=== PATIENT | male | born 1965 | race Caucasian/White ===

== ENCOUNTER 2020-03-31 18:51 | Emergency (ER) | payer OTHER, SELFPAY ==
[2020-03-31 18:52] VITALS: BP 154/97; PULSE 69; RESP 16; TEMP 36.6; O2SAT 96; BMI 33.2
--- NOTE | 2020-03-31 19:08 | ED.VIS.INJ ---
History of Present Illness Chief Complaint: Laceration Informant: Patient Onset: Today Mechanism/Context: Puncture Wound Quality of Pain: Aching Narrative: Patient is a 54-year-old male presenting with puncture wound and laceration to his right hand. He is right-hand dominant. He was climbing down scaffolding when a piece of glass punctured his hand. He pulled out 1 small piece of glass. Does not feel it there is currently any retained foreign body. This was a couple hours prior to arrival. Patient initially had some tingling of his pinky finger but that has resolved. He thinks his last tetanus was around 5 years ago. He would like to have it updated again. This did happen at work but patient states he does not want a file Workmen's Compensation. He denies any other complaints at this time. He is not currently having any bleeding. Tetanus Immunization: 5-10 years Past Medical History - Allergies and Home Meds Allergies/Adverse Reactions: Allergies No Known Allergies Allergy (Verified 03/31/20 18:51) Primary Care Physician: Eloy Cosme MD [STAFF PHYSICIAN] - Past Medical History: None Surgical History: noncontributory Smoking Status: Never smoker Review of Systems General: Denies: Chills, Fever, Sweats Eyes: Denies: Visual changes - bilaterally, Diplopia ENT: Denies: Rhinorrhea, Sore throat Cardiovascular: Denies: Chest pain, Palpitations Respiratory: Denies: Dyspnea, Cough, Dyspnea on exertion Gastrointestinal: Denies: Abdominal pain, Nausea, Vomiting Musculoskeletal: Reports: Extremity Pain - Right hand. Denies: Back pain Skin: Reports: Wounds - Right hand. Denies: Rash Neurological: Denies: Headache, Weakness, Parasthesia, Numbness Physical Exam Vital Signs/Narrative: Vital Signs Temp Pulse Resp BP Pulse Ox 03/31/20 18:52 97.8 F 69 16 154/97 H 96 Inital Vital Signs reviewed: Yes General: Well nourished, Well developed Head: Normocephalic, Atraumatic Eyes: Perrl, EOMI ENT: No trauma Neck: Full ROM Cardiovascular: Regular rate, Regular rhythm, No murmurs Respiratory: No distress, CTA bilaterally, Chest nontender Skin: Normal color, No rash, Trauma - 1.5 cm laceration over the palmar surface of the right hand mid hyperthenar eminence. Full-thickness. No active bleeding. Neurological: Alert, Oriented x3, Cranial nerves II-XII grossly intact, Normal Strength, Normal Sensation, - - Normal sensation in all dermatomes as well as normal strength in all dermatomes of the right hand Psychological: Normal affect Diagnostic/Tx/Re-eval - Medical Decision Making Patient is evaluated for laceration to his right hand. Tetanus is updated. See procedure note for laceration repair. Patient is not having palpable foreign body and seems like one piece of glass was removed from the wound. I do not think an x-ray is indicated at this time. Patient is counseled on generalized wound care. As he does not have a PCP he is referred to one for outpatient follow-up. He is instructed that his sutures should come out on their own but if they are still in that issue be removed after 10 days. Patient is counseled on signs and symptoms requiring return to the emergency room. Patient verbalizes agreement and understand this plan. Patient discharged home in stable and improved condition. Laceration No standard instances Length: 0.59 in Depth: Sub Q Shape: Linear Prep: Sterile Conditions, Argelia Laceration Repair: Lidocaine with epi Irrigated (ml): 999 - running water Number of Sutures/[place]: 2 Stitch Description: Simple, 4-0, - - vicryl rapid ED Disposition - Plan for ED Patient: Disposition: Home or Assisted Living Diagnosis: Laceration of right hand Instructions: ED Laceration Hand Referrals: Eloy Cosme MD [STAFF PHYSICIAN] - Additional Instructions: I placed absorbable sutures in. This should fall out in 7 to 10 days. They do not come out before that you can be re-seen and they can be removed after 10 days. Keep the wound clean and dry for the first 24 to 48 hours. Apply bacitracin ointment as needed. Return to emergency room with any signs of infection or worsening pain.
[2020-03-31] MEDS: Diphth,Pertuss(Acell),Tet Vac 0.5 ML Vial IM (19:18)
[2020-03-31 19:45] VITALS: RESP 16
== END 2020-03-31 19:40 | disposition home or self-care (01) ==
PROVIDERS: Emergency Provider Emergency Medicine
DX: S61.431A Puncture wound without foreign body of right hand, initial encounter (principal); S61.411A Laceration without foreign body of right hand, initial encounter; W25.XXXA Contact with sharp glass, initial encounter; Y93.9 Activity, unspecified; Y92.9 Unspecified place or not applicable; Y99.0 Civilian activity done for income or pay; Z23 Encounter for immunization
CPT/HCPCS: 12001; 90471; 90715; 99283

== ENCOUNTER → 2021-04-07 09:34 | Outpatient (CLI) | payer BC, SELFPAY ==
[2021-04-07 08:09] VITALS: BMI 33.2
[2021-04-07 12:40] LABS: Absolute Lymphocyte Count 1.77 X10^3/uL (0.83-4.51); Absolute Neutrophil Count 2.5 X10^3/uL (2.0-7.7); Basophil# 0.03 X10^3/uL; Basophil% 0.6 % (0-1); Eosinophil# 0.07 X10^3/uL; Eosinophils% 1.5 % (0-5); Hematocrit 50.7 % (40-54); Hemoglobin 16.8 g/dL (13.0-16.5); Lymphocyte # 1.77 X10^3/ul (0.83-4.51); Lymphocyte % 36.7 % (19-41); Mean Corp Hgb Conc 33.1 g/dL (32-36); Mean Corpuscular Hgb 27.6 pg (27.0-32.0); Mean Corpuscular Volume 83.3 fL (80-94); Mean Platelet Vol. 9.8 fl (6.2-12.0); Monocyte# 0.43 X10^3/uL; Monocyte% 8.9 % (0-10); NRBC Flagged by Analyzer 0 % (0-5); Neutrophil # 2.51 X10^3/uL (2.7-7.7); Neutrophil % 52.1 % (47-70); Platelet Count 267 K/mm3 (150-450); RBC Distribution Width SD 38.8 fl (35.1-43.9); Red Blood Count 6.09 M/mm3 (4.6-6.2); White Blood Count 4.8 K/mm3 (4.4-11.0)
[2021-04-07 13:16] LABS: Anion Gap 5 (5-15); BUN 11 mg/dL (7-18); BUN/Creat Ratio 11.7 RATIO (10-20); Calcium,Total 8.7 mg/dL (8.5-10.1); Chloride 106 mmol/L (98-107); Creatinine, Serum 0.94 mg/dL (0.70-1.30); EST Glomerular Filtration Rate 88 mL/min (>60); Est Glom Filt Rate - Afr Amer 107 mL/min (>60); Glucose 101 mg/dL (74-106); PSA,Total - Annual Screen 1.23 ng/mL (0.00-4.00); Potassium 4.1 mmol/L (3.5-5.1); Sodium Level 140 mmol/L (136-145); Thyroid Stim Hormone (TSH) 1.34 uIU/mL (0.358-3.74)
== END ==
PROVIDERS: PCP Internal Medicine; Referring Provider Nurse Practitioner Family; Visit Provider Nurse Practitioner Family
DX: Z00.00 Encounter for general adult medical examination without abnormal findings (principal)
CPT/HCPCS: 36415; 80048; 84153; 84443; 85025; G0103

== ENCOUNTER → 2023-04-29 | Outpatient (CLI) | payer BC, SELFPAY ==
[2023-04-29 07:45] LABS: Absolute Lymphocyte Count 1.57 X10^3/uL (0.83-4.51); Basophil# 0.03 X10^3/uL; Basophil% 0.5 % (0-1); Eosinophil# 0.07 X10^3/uL; Eosinophils% 1.1 % (0-5); Hematocrit 48.9 % (40-54); Hemoglobin 16.9 g/dL (13.0-16.5); Lymphocyte # 1.57 X10^3/ul (0.83-4.51); Lymphocyte % 25.2 % (19-41); Mean Corp Hgb Conc 34.6 g/dL (32-36); Mean Corpuscular Hgb 29.1 pg (27.0-32.0); Mean Corpuscular Volume 84.2 fL (80-94); Mean Platelet Vol. 9.5 fl (6.2-12.0); Monocyte# 0.56 X10^3/uL; NRBC Flagged by Analyzer 0 % (0-5); Neutrophil # 3.99 X10^3/uL (2.7-7.7); Neutrophil % 63.9 % (47-70); Platelet Count 254 K/mm3 (150-450); RBC Distribution Width CV 12.5 % (11.6-14.6); RBC Distribution Width SD 38.6 fl (35.1-43.9); Red Blood Count 5.81 M/mm3 (4.6-6.2); White Blood Count 6.2 K/mm3 (4.4-11.0)
[2023-04-29 08:14] LABS: Vitamin D,25 Hydroxy 28.8 ng/mL
[2023-04-29 08:16] LABS: ALB/GLOB Ratio 1.1 RATIO (0.9-2.4); AST(SGOT) 18 U/L (15-37); Alanine Aminotransfer ALT/SGPT 31 U/L (16-61); Albumin, Serum 3.8 g/dL (3.2-5.0); Alkaline Phosphatase 59 U/L (45-117); Anion Gap 2 (5-15); BUN 17 mg/dL (7-18); BUN/Creat Ratio 16.8 RATIO (10-20); Calcium,Total 8.5 mg/dL (8.5-10.1); Chloride 110 mmol/L (98-107); Cholesterol 209 mg/dL (200); Creatinine, Serum 1.01 mg/dL (0.70-1.30); EST Glomerular Filtration Rate 80 mL/min (>60); Est Glom Filt Rate - Afr Amer 97 mL/min (>60); Globulin 3.6 g/dL (2.2-4.2); Glucose 114 mg/dL (74-106); High Density Lipoprotein 29 mg/dL; PSA,Total - Annual Screen 0.91 ng/mL (0.00-4.00); Potassium 4.1 mmol/L (3.5-5.1); Protein, Total 7.4 g/dL (6.4-8.2); Sodium Level 139 mmol/L (136-145); Triglycerides 242 mg/dL; Very Low Density Lipoprotein 48 mg/dL (5-40)
== END | disposition home or self-care (01) ==
LOC: LAB 07:08
PROVIDERS: PCP Internal Medicine; Referring Provider Internal Medicine; Visit Provider Internal Medicine
DX: Z00.00 Encounter for general adult medical examination without abnormal findings (principal); E78.6 Lipoprotein deficiency; E66.9 Obesity, unspecified; Z13.220 Encounter for screening for lipoid disorders; E55.9 Vitamin D deficiency, unspecified; Z12.5 Encounter for screening for malignant neoplasm of prostate
CPT/HCPCS: 36415; 80053; 80061; 82306; 84153; 85025; G0103

== ENCOUNTER 2025-04-11 09:09 | Outpatient (CLI) | payer OTHER, SELFPAY ==
[2025-04-11 09:33] LABS: Hematocrit 47.5 % (40-54); Hemoglobin 16.2 g/dL (13.0-16.5); Immature Granulocytes Count 0.020 X10^3/uL (0.0-0.0); Mean Corp Hgb Conc 34.1 g/dL (32-36); Mean Corpuscular Volume 82.3 fL (80-94); Mean Platelet Vol. 9.3 fl (6.2-12.0); NRBC Flagged by Analyzer 0 % (0-5); Platelet Count 239 K/mm3 (150-450); RBC Distribution Width CV 12.8 % (11.6-14.6); RBC Distribution Width SD 38.5 fl (35.1-43.9); Red Blood Count 5.77 M/mm3 (4.6-6.2); White Blood Count 5.7 K/mm3 (4.4-11.0)
[2025-04-11 10:33] LABS: Cholesterol 222 mg/dL (<=200); Low Density Lipoprotein Calc. 150 mg/dL; PSA,Total - Annual Screen 0.98 ng/mL (0.02-4.00); Triglycerides 174 mg/dL; Very Low Density Lipoprotein 35 mg/dL (5-40); Vitamin D,25 Hydroxy 25.7 ng/mL (30-100); cholesterol:hdl ratio screen 5.97
[2025-04-11 10:37] LABS: AST(SGOT) 21 U/L (<=37); Alanine Aminotransfer ALT/SGPT 25 U/L (<=46); Albumin, Serum 4.3 g/dL (3.4-4.8); Alkaline Phosphatase 57 U/L (40-129); Anion Gap 12 (5-15); BUN 15 mg/dL (4-19); BUN/Creat Ratio 14.8 RATIO (10-20); Calcium,Total 9.0 mg/dL (7.6-11.0); Carbon Dioxide 23.0 mmol/L (21.0-32.0); Chloride 107 mmol/L (98-108); Globulin 2.9 g/dL (2.2-4.2); Glucose 115 mg/dL (70-99); Potassium 4.0 mmol/L (3.3-5.1)
== END 2025-04-11 23:59 | disposition home or self-care (01) ==
LOC: LAB 09:10
PROVIDERS: PCP Internal Medicine; Referring Provider Internal Medicine; Visit Provider Internal Medicine
DX: Z00.00 Encounter for general adult medical examination without abnormal findings (principal); E78.6 Lipoprotein deficiency; E66.9 Obesity, unspecified; Z12.5 Encounter for screening for malignant neoplasm of prostate; Z13.220 Encounter for screening for lipoid disorders; R73.9 Hyperglycemia, unspecified
CPT/HCPCS: 80053; 80061; 82306; 83036; 84153; 84443; 85025; G0103

== ENCOUNTER → 2025-05-07 | Outpatient (CLI) | payer OTHER, SELFPAY ==
--- OUTSIDE RECORDS SUMMARY | 2025-05-07 06:06 | XMS RPT_ITS | CCD ---
Author Organization [facility] Care Team Providers Care Process Coordinator Name Role Phone EWELINA JAMES Unavailable Unavailable PHYSICIAN, NONE Unavailable Unavailable EWELINA JAMES Unavailable Unavailable Dr. Shala Mohamud Primary Care Provider Dr. Shala Mohamud Attending Provider [phone] One[place] SEE, Dr. Last Primary Care Provider One[place] SEE, Dr. Last Attending Provider [place] SEE, Dr. Last Referring Provider Unavailable Primary Care Provider Unavailabl e ALKA FROST Referring Unavailable ALKA FROST Attending Unavailable Shala Mohamud Primary Care Unavailable Shala Mohamud Referring Unavailable Shala Mohamud Attending Unavailable Shala Mohamud Attending Unavailable Shala Mohamud Primary Care Unavailable Shala Mohamud Referring Unavailable Shala Mohamud Primary Care Unavailable Shala Mohamud Attending Unavailable Medications Current Medications Medication Drug Class(es) Dates Sig (Normalized) Sig (Original) predniSONE 10 mg oral tablet (1 source) Start: 04-20-2025 End: 04-29-2025 take 4 tablets by mouth once daily, then take 3 tablets by mouth once daily, then take 1 tablet by mouth once daily predniSONE (DELTASONE) 10 mg tablet Indications: Inflammatory heel pain, right Take 4 tablets by mouth once daily for 3 days, THEN 3 tablets once daily for 3 days, THEN 1 tablet once daily for 3 days. 24 tablet 04/20/2025 04/29/2025 Active Problems Active Problems Problem Classification Problem Date Documented Da te Episodic/Chronic Disorders of lipid metabolism (2 sources) Hyperlipidemia; Translations: [Hyperlipidemia, unspecified] Onset: 10-03-2008 10-03-2008 Chronic Open wounds of extremities (3 sources) Laceration of hand; Translations: [Laceration without foreign body of right hand, initial encounter] 04-01-2020 Episodic Other connective tissue disease (4 sources) Heel pain; Translations: [Pain in right foot] 04-20-2025 Episodic Other connective tissue disease (1 source) Calcaneal spur of right foot; Translations: [Calcaneal spur, right foot] 04-20-2025 Episodic Other connective tissue disease (1 source) Pain in right foot; Translations: [Inflammatory heel pain, right] Onset: 04-20-2025 Episodic Other lower respiratory disease (2 sources) Dyspnea on exertion; Translations: [Other forms of dyspnea] 04-11-2025 Episodic Other lower respiratory disease (2 sources) Other forms of dyspnea; Translations: [Other forms of dyspnea] Onset: 04-11-2025 Episodic Other nutritional; endocrine; and metabolic disorders (3 sources) Obese class I; Translations: [Obesity, unspecified] 04-07-2021 Chronic Other nutritional; endocrine; and metabolic disorders (3 sources) Cholesterol level - finding; Translations: [Lipoprotein deficiency] 04-07-2021 Chronic Other nutritional; endocrine; and metabolic disorders (3 sources) Lipoprotein deficiency; 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] Onset: 04-11-2025 04-07-2023 Chronic Other nutritional; endocrine; and metabolic disorders (3 sources) Obesity, unspecified; Translations: [Obesity, unspecified] Onset: 04-11-2025 04-07-2023 Chronic Past or Other Problems Problem Classification Problem Date Documented Da te Episodic/Chronic Diabetes mellitus without complication (2 sources) Abnormal glucose level; Translations: [Other abnormal glucose] Onset: 10-03-2008 10-03-2008 Episodic Other circulatory disease (2 sources) Elevated blood-pressure reading without diagnosis of hypertension; Translations: [Elevated blood-pressure reading, without diagnosis of hypertension] Onset: 10-03-2008 10-03-2008 Episodic Other screening for suspected conditions (not mental disorders or infectious disease) (2 sources) Patient encounter status; Translations: [Encounter for screening for malignant neoplasm of colon] Onset: 04-01-2016 04-01-2016 Episodic Residual codes; unclassified (2 sources) Family history of prostate cancer; Translations: [Family history of malignant neoplasm of prostate] Onset: 10-03-2008 10-03-2008 Episodic Results Test Name Value Interpretation Reference Range Facility [facility] 04-20-2025 [facility]OV Office Visit ([facility]) AHMET NIXON ([id number]) 1965 M Date Time Provider Department 04/20/25 9:30 AM ALKA FORST WOALEX During your visit today, we recorded the following information about you: Temperature Pulse Respiration Blood pressure 97.7 degrees 59/minute 16/minute 140/80 Weight 104 kg Alka Frost APRN.WAYBILL CLERK 04/20/2025 12:37 PM Signed [facility] Subjective Ahmet Nixon is a 60 year old male. Patient presents with: Pain: Thinks he over extended right achilles tendon x 2 days HPI Right Foot Pain: - Onset after excessive walking during a [employer]. - Typically walks 4,000-6,000 steps/day; walked 28,000 steps on the day of onset. - Initial pain began with tenderness in the ankle progressing to difficulty walking by the end of the day. - Pain initially localized to the plantar aspect of the foot, then shifted to the lateral aspect, and is now primarily in the posterior heel. - Able to place foot flat on the floor but experiences pressure when doing so. - Pain severity initially rated as 8/10. - Swelling has decreased significantly. - Denies pain on the dorsum of the foot. Review of Systems Musculoskeletal: (+) heel pain, (+) difficulty walking, (-) dorsal foot pain, (-) ankle pain Objective BP 140/80 Pulse (!) 59 Temp 36.5 ?C (97.7 ?F) (Tympanic) Resp 16 Wt 104 kg (229 lb 4.5 oz) SpO2 98% PAST MEDICAL HISTORY[1] PAST SURGICAL HISTORY Procedure Laterality Date - COLONOSCOPY FLX DX W/COLLJ SPEC WHEN PFRMD 04/27/16 normal - 10 year follow up - TONSILLECTOMY PRIMARY/SECONDARY Tonsillectomy ALLERGIES Patient has no known allergies. MEDICATIONS - predniSONE (DELTASONE) 10 mg tablet Take 4 tablets by mouth once daily for 3 days, THEN 3 tablets once daily for 3 days, THEN 1 tablet once daily for 3 days. FAMILY HISTORY[2] SOCIAL HISTORY[3] Physical Exam { 1. Inflammatory heel pain, right (M79.671) 2. Calcaneal spur, right foot (M77.31) - X-ray shows a posterior plantar spur; suspect inflammation of the Achilles tendon at the heel insertion. - Start prednisone taper. - Apply ice and elevate foot. - Continue to use crutches as needed. - Educated patient on expected improvement within 24-48 hours of starting prednisone. - Follow-up with your PCP in 3-5 days if symptoms have not improved or sooner if symptoms worsen - Discussed red flags and need for immediate medical evaluation if any occur. - Discussed supportive care treatment with fluids, rest and analgesia. - Discussed expected course of illness Alka Frost APRN.WAYBILL CLERK and Recording using [employer] software for draft documentation of the visit was discussed with the patient/authorized patient services representative; all questions welcomed and answered. Patient/authorized patient services representative agreed to proceed History and Record Review Clinical information obtained from an independent historian. History obtained from or confirmed by: spouse. Management I performed an independent interpretation of the following:imaging Imaging: My interpretation is see chart Disposition The patient was discharged. Procedures [1] Past Medical History: No date: NEGATIVE MEDICAL HISTORY [2] Review of patient's family history indicates: Problem: Hypertension Relation: Father Age of Onset: (Not Specified) Problem: Arthritis Relation: Father Age of Onset: (Not Specified) Comment: Gout Problem: None Relation: Father Age of Onset: (Not Specified) Comment: glaucoma Problem: None Relation: Mother Age of Onset: (Not Specified) Comment: Hx pulmonary embolism Problem: Lipids Relation: Brother Age of Onset: (Not Specified) Problem: Prostate Cancer Relation: Father Age of Onset: (Not Specified) [3] Social History Tobacco Use - Smoking status: Never Substance Use Topics - Alcohol use: Yes Comment: occassionally - Drug use: No Alka Frost APRN.CNP 04/20/2025 12:37 PM Signed 1. Inflammatory heel pain, right (M79.671) 2. Calcaneal spur, right foot (M77.31) - X-ray shows a posterior plantar spur; suspect inflammation of the Achilles tendon at the heel insertion. - Start prednisone taper. - Apply ice and elevate foot. - Continue to use crutches as needed. - Educated patient on expected improvement within 24-48 hours of starting prednisone. - X-ray shows a heel spur (posterior plantar spur). You have inflammation where your Achilles tendon attaches to your heel. 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 - Apply ice to your heel and elevate your foot when resting to help reduce swelling. - Continue using crutches as needed to keep weight off your foot. - Expect to notice improvement within 24 to 48 hours after starting the medication. Allergies As of Date: 04/20/2025 (No Known Allergies) (more content not included)... Normal [facility] XR ANKLE 3V AP/LAT/OBL RTon 04-20-2025 XR ANKLE 3V AP/LAT/OBL RT * * *Final Report* * * DATE OF EXAM: Apr 20 2025 10:06AM WOX 5297 - XR ANKLE 3V AP/LAT/OBL RT / PROCEDURE REASON: Inflammatory heel pain, right * * * * Physician Interpretation * * * * EXAMINATION: XR ANKLE 3V AP/LAT/OBL RT CLINICAL HISTORY: Right heel pain Technique: XR ANKLE 3V AP/LAT/OBL RT -- RIGHT with 3 views on 3 images Comparison: None RESULT: No acute fracture or dislocation. Joint spaces are maintained. Posterior calcaneal spur. IMPRESSION: No acute osseous abnormality Washroom Cleaner: MAKAYLA Transcribe Date/Time: Apr 20 2025 11:39A Dictated by : JUAN R CARLSON MD This examination was interpreted and the report reviewed and electronically signed by: JUAN R CARLSON MD on Apr 20 2025 11:41AM EST [id number] CN Normal [facility] XR Ankle - right AP and Late ral and obliqueon 04-20-2025 IMPRESSION: No acute osseous abnormality Washroom Cleaner: MAKAYLA Transcribe Date/Time: Apr 20 2025 11:39A Dictated by : JUAN R CARLSON MD This examination was interpreted and the report reviewed and electronically signed by: JUAN R CARLSON MD on Apr 20 2025 11:41AM EST DIVISION OF RADIOLOGY * * *Final Report* * * DATE OF EXAM: Apr 20 2025 10:06AM WOX 5297 - XR ANKLE 3V AP/LAT/OBL RT / PROCEDURE REASON: Inflammatory heel pain, right * * * * Physician Interpretation * * * * EXAMINATION: XR ANKLE 3V AP/LAT/OBL RT CLINICAL HISTORY: Right heel pain Technique: XR ANKLE 3V AP/LAT/OBL RT -- RIGHT with 3 views on 3 images Comparison: None RESULT: No acute fracture or dislocation. Joint spaces are maintained. Posterior calcaneal spur. DIVISION OF RADIOLOGY Provider, [facility] [place] - 04/20/2025 * * *Final Report* * * DATE OF EXAM: Apr 20 2025 10:06AM WOX 5297 - XR ANKLE 3V AP/LAT/OBL RT / PROCEDURE REASON: Inflammatory heel pain, right * * * * Physician Interpretation * * * * EXAMINATION: XR ANKLE 3V AP/LAT/OBL RT CLINICAL HISTORY: Right heel pain Technique: XR ANKLE 3V AP/LAT/OBL RT -- RIGHT with 3 views on 3 images Comparison: None RESULT: No acute fracture or dislocation. Joint spaces are maintained. Posterior calcaneal spur. IMPRESSION IMPRESSION: No acute osseous abnormality Washroom Cleaner: [facility] Transcribe Date/Time: Apr 20 2025 11:39A Dictated by : JUAN R CARLSON MD This examination was interpreted and the report reviewed and electronically signed by: JUAN R CARLSON MD on Apr 20 2025 11:41AM [facility] Radiology Study observation (narrative) [facility] XR Ankle - right AP and Late ral and obliqueOrdered By: [facility] Provider on 04-20-2025 [facility] L3410.9992on 04-17-2025 [facility] Misc. COMMENT Normal . [facility] Comment on above: Order Comment: 60899 3 Oxidized Low-density Lipoprote Result Comment: Test Ordered: [id number] Oxidized LDL Oxidized LDL 1072 [H ] ng/mL Reference Range: 10-170 Results verified by repeat testing Performed at: [address] [id number] Police Department Secretary: Shannon Miner MD, Phone: [phone] Performed at: [facility] [id number] Police Department Secretary: Glenn Adair PhD, Phone: [phone] Performed By: #### L 3410.9992 #### [facility] [address] [place], [place], [address] Absolute lymphocyte countOrd ered By: Shala Mohamud on 04-11-2025 Lymphocytes Auto (Unsp spec) [#/Vol] 1.83 10*3/uL 0.83-4.51 [facility] Absolute neutrophil countOrd ered By: Shala Mohamud on 04-11-2025 Neutrophils (Bld) [#/Vol] 3.3 10*3/uL 2.0-7.7 [facility] Anion gap in Serum or Plasma Ordered By: Shala Mohamud on 04-11-2025 Anion gap [Moles/Vol] 12 mmol/L 5-15 [facility] Automated lymphocyte count a s percentage of total leukocytesOrdered By: Shala Mohamud on 04-11-2025 Lymphocytes/100 WBC Auto (Unsp spec) 32.2 % 19-41 [facility] BUN/creatinine ratioOrdered By: Shala Mohamud on 04-11-2025 Urea nitrogen/Creatinine [Mass ratio] 14.8 mg/mg 10-20 [facility] Basophil percentageOrdered B y: Shala Mohamud on 04-11-2025 Basophils/100 WBC (Bld) 0.4 % 0-1 [facility] Bilirubin, totalOrdered By: Shala Mohamud on 04-11-2025 Bilirubin [Mass/Vol] 1.02 mg/dL 0.00-1.30 [facility] CBC W/Diff, Automatedon 03-14 Absolute Lymph 1.83 X10 3/uL Normal 0.83-4.51 [facility] Comment on above: Performed By: #### L 100.0100, L500.4050, L500.4100, L501.9520, L501.9910, L506.1001 #### [facility] [address] [place], [address] Absolute Neut 3.3 X10 3/uL Normal 2.0-7.7 [facility] Comment on above: Performed By: #### L 100.0100, L500.4050, L500.4100, L501.9520, L501.9910, L506.1001 #### [facility] [address] [place], [address] Basophils/100 WBC (Bld) 0.4 % Normal 0-1 [facility] Comment on above: Performed By: #### L 100.0100, L500.4050, L500.4100, L501.9520, L501.9910, L506.1001 #### [facility] [address] [place], [address] Eosinophils/100 WBC (Bld) 1.1 % Normal 0-5 [facility] Comment on above: Performed By: #### L 100.0100, L500.4050, L500.4100, L501.9520, L501.9910, L506.1001 #### [facility] [address] [place], [address] Erythrocyte distribution width (RBC) [Ratio] 12.8 % Normal 11.6-14.6 [facility] Comment on above: Performed By: #### L 100.0100, L500.4050, L500.4100, L501.9520, L501.9910, L506.1001 #### [facility] [address] [place], [address] Hematocrit (Bld) [Volume fraction] 47.5 % Normal 40-54 [facility] Comment on above: Performed By: #### L 100.0100, L500.4050, L500.4100, L501.9520, L501.9910, L506.1001 #### [facility] [address] [place], [address] Hemoglobin (Bld) [Mass/Vol] 16.2 g/dL Normal 13.0-16.5 [facility] Comment on above: Performed By: #### L 100.0100, L500.4050, L500.4100, L501.9520, L501.9910, L506.1001 #### [facility] [address] [place], [address] IG% 0.400 Normal 0.0-0.9 [facility] Comment on above: Result Comment: IG% - Immature Granulocytes (promyelocytes, myelocytes and metamyelocytes) > 1% indicates that a LEFT SHIFT is Present. Performed By: #### L 100.0100, L500.4050, L500.4100, L501.9520, L501.9910, L506.1001 #### [facility] [address] [place], [address] Lymphocytes/100 WBC (Bld) 32.2 % Normal 19-41 [facility] Comment on above: Performed By: #### L 100.0100, L500.4050, L500.4100, L501.9520, L501.9910, L506.1001 #### [facility] [address] [place], [address] MCH (RBC) [Entitic mass] 28.1 pg Normal 27.0-32.0 [facility] Comment on above: Performed By: #### L 100.0100, L500.4050, L500.4100, L501.9520, L501.9910, L506.1001 #### [facility] [address] [place], [address] MCHC (RBC) [Mass/Vol] 34.1 g/dL Normal 32-36 [facility] Comment on above: Performed By: #### L 100.0100, L500.4050, L500.4100, L501.9520, L501.9910, L506.1001 #### [facility] [address] [place], [address] MCV (RBC) [Entitic vol] 82.3 fL Normal 80-94 [facility] Comment on above: Performed By: #### L 100.0100, L500.4050, L500.4100, L501.9520, L501.9910, L506.1001 #### [facility] [address] [place], [address] Monocytes/100 WBC (Bld) 7.7 % Normal 0-10 [facility] Comment on above: Performed By: #### L 100.0100, L500.4050, L500.4100, L501.9520, L501.9910, L506.1001 #### [facility] [address] [place], [address] Neutrophils/100 WBC (Bld) 58.2 % Normal 47-70 [facility] Comment on above: Performed By: #### L 100.0100, L500.4050, L500.4100, L501.9520, L501.9910, L506.1001 #### [facility] [address] [place], [address] Nucleated RBC (Bld) [#/Vol] 0 10*3/uL Normal 0-5 [facility] Comment on above: Performed By: #### L 100.0100, L500.4050, L500.4100, L501.9520, L501.9910, L506.1001 #### [facility] [address] [place], [address] Platelet mean volume (Bld) [Entitic vol] 9.3 fL Normal 6.2-12.0 [facility] Comment on above: Performed By: #### L 100.0100, L500.4050, L500.4100, L501.9520, L501.9910, L506.1001 #### [facility] [address] [place], [address] Platelets (Bld) [#/Vol] 239 10*3/uL Normal 150-450 [facility] Comment on above: Performed By: #### L 100.0100, L500.4050, L500.4100, L501.9520, L501.9910, L506.1001 #### [facility] [address] [place], [address] RBC (Bld) [#/Vol] 5.77 10*6/uL Normal 4.6-6.2 [facility] Comment on above: Performed By: #### L 100.0100, L500.4050, L500.4100, L501.9520, L501.9910, L506.1001 #### [facility] [address] [place], [address] RDW SD 38.5 fl Normal 35.1-43.9 [facility] Comment on above: Performed By: #### L 100.0100, L500.4050, L500.4100, L501.9520, L501.9910, L506.1001 #### [facility] [address] [place], [address] WBC (Bld) [#/Vol] 5.7 10*3/uL Normal 4.4-11.0 [facility] Comment on above: Performed By: #### L 100.0100, L500.4050, L500.4100, L501.9520, L501.9910, L506.1001 #### [facility] [address] [place], [address] Calculated very low density lipoprotein (VLDL) cholesterol measurementOrdered By: Shala Mohamud on 04-11-2025 Calculated very low density lipoprotein (VLDL) cholesterol measurement 35 mg/dL 5-40 [facility] Carbon dioxide, total [Moles /volume] in Central venous bloodOrdered By: Shala Mohamud on 04-11-2025 CO2 [Moles/Vol] 23.0 mmol/L 21.0-32.0 [facility] Chloride assayOrdered By: Jesusita Mohamud on 04-11-2025 Chloride [Moles/Vol] 107 mmol/L 98-108 [facility] Comprehensive Metabolic Prof ilon 04-11-2025 Albumin [Mass/Vol] 4.3 g/dL Normal 3.4-4.8 [facility] Comment on above: Performed By: #### L 100.0100, L500.4050, L500.4100, L501.9520, L501.9910, L506.1001 #### [facility] [address] [place], [address] Albumin/Globulin [Mass ratio] 1.5 {ratio} Normal 0.9-2.4 [facility] Comment on above: Performed By: #### L 100.0100, L500.4050, L500.4100, L501.9520, L501.9910, L506.1001 #### [facility] [address] [place], [address] ALK PHOS 57 U/L Normal 40-129 [facility] Comment on above: Performed By: #### L 100.0100, L500.4050, L500.4100, L501.9520, L501.9910, L506.1001 #### [facility] [address] [place], [address] ALT [Catalytic activity/Vol] 25 U/L Normal <=46 [facility] Comment on above: Performed By: #### L 100.0100, L500.4050, L500.4100, L501.9520, L501.9910, L506.1001 #### [facility] [address] [place], [address] AST [Catalytic activity/Vol] 21 U/L Normal <=37 [facility] Comment on above: Performed By: #### L 100.0100, L500.4050, L500.4100, L501.9520, L501.9910, L506.1001 #### [facility] [address] [place], [address] Bilirubin [Mass/Vol] 1.02 mg/dL Normal 0.00-1.30 [facility] Comment on above: Performed By: #### L 100.0100, L500.4050, L500.4100, L501.9520, L501.9910, L506.1001 #### [facility] [address] [place], [address] BUN/CRE 14.8 RATIO Normal 10-20 [facility] Comment on above: Performed By: #### L 100.0100, L500.4050, L500.4100, L501.9520, L501.9910, L506.1001 #### [facility] [address] [place], [address] Calcium [Mass/Vol] 9.0 mg/dL Normal 7.6-11.0 [facility] Comment on above: Performed By: #### L 100.0100, L500.4050, L500.4100, L501.9520, L501.9910, L506.1001 #### [facility] [address] [place], [address] Chloride [Moles/Vol] 107 mmol/L Normal 98-108 [facility] Comment on above: Performed By: #### L 100.0100, L500.4050, L500.4100, L501.9520, L501.9910, L506.1001 #### [facility] [address] [place], [address] CO2 [Moles/Vol] 23.0 mmol/L Normal 21.0-32.0 [facility] Comment on above: Performed By: #### L 100.0100, L500.4050, L500.4100, L501.9520, L501.9910, L506.1001 #### [facility] [address] [place], [address] Creatinine [Mass/Vol] 1.00 mg/dL Normal 0.70-1.20 [facility] Comment on above: Performed By: #### L 100.0100, L500.4050, L500.4100, L501.9520, L501.9910, L506.1001 #### [facility] [address] [place], [address] GAP 12 Normal 5-15 [facility] Comment on above: Performed By: #### L 100.0100, L500.4050, L500.4100, L501.9520, L501.9910, L506.1001 #### [facility] [address] [place], [address] GFR/1.73 sq M.predicted among non-blacks MDRD (S/P/Bld) [Vol rate/Area] 86 mL/min/{1.73_m2} Normal >60 [facility] Comment on above: Result Comment: mL/m in/1.73m2 CKD-EPI Creatinine Equation (2020) Performed By: #### L 100.0100, L500.4050, L500.4100, L501.9520, L501.9910, L506.1001 #### [facility] [address] [place], [address] Globulin (S) [Mass/Vol] 2.9 g/dL Normal 2.2-4.2 [facility] Comment on above: Performed By: #### L 100.0100, L500.4050, L500.4100, L501.9520, L501.9910, L506.1001 #### [facility] [address] [place], [address] Glucose [Mass/Vol] 115 mg/dL High 70-99 [facility] Comment on above: Performed By: #### L 100.0100, L500.4050, L500.4100, L501.9520, L501.9910, L506.1001 #### [facility] [address] [place], [address] Potassium [Moles/Vol] 4.0 mmol/L Normal 3.3-5.1 [facility] Comment on above: Performed By: #### L 100.0100, L500.4050, L500.4100, L501.9520, L501.9910, L506.1001 #### [facility] [address] [place], [address] Sodium [Moles/Vol] 141 mmol/L Normal 133-145 [facility] Comment on above: Performed By: #### L 100.0100, L500.4050, L500.4100, L501.9520, L501.9910, L506.1001 #### [facility] [address] [place], [address] T PROT 7.2 g/dL Normal 5.9-8.4 [facility] Comment on above: Performed By: #### L 100.0100, L500.4050, L500.4100, L501.9520, L501.9910, L506.1001 #### [facility] [address] [place], [address] Urea nitrogen [Mass/Vol] 15 mg/dL Normal 4-19 [facility] Comment on above: Performed By: #### L 100.0100, L500.4050, L500.4100, L501.9520, L501.9910, L506.1001 #### [facility] [address] [place], [address] Eosinophil percentageOrdered By: Shala Mohamud on 04-11-2025 Eosinophils/100 WBC (Bld) 1.1 % 0-5 [facility] Erythrocyte distribution wid th ratioOrdered By: Shala Mohamud on 04-11-2025 Erythrocyte distribution width (RBC) [Ratio] 12.8 % 11.6-14.6 [facility] Erythrocyte distribution wid th standard deviationOrdered By: Shala Mohamud on 04-11-2025 Erythrocyte distribution width (RBC) [Ratio] 38.5 fl 35.1-43.9 [facility] Glomerular filtration rate ( GFR) estimation/1.73 sq m using serum, plasma, or whole bOrdered By: Shala Mohamud on 04-11-2025 GFR/1.73 sq M.predicted among non-blacks MDRD (S/P/Bld) [Vol rate/Area] 86 mL/min/{1.73_m2} >60 [facility] Comment on above: mL/min/1.73m2 CKD-EP I Creatinine Equation (2020) Hematocrit Auto (Bld) [Volum e fraction]Ordered By: Shala Mohamud on 04-11-2025 Hematocrit (Bld) [Volume fraction] 47.5 % 40-54 [facility] Hemoglobin A1con 04-11-2025 HbA1c (Bld) [Mass fraction] 5.7 % Normal <=5.6 [facility] Comment on above: Result Comment: Norm al < 5.7 % Prediabetic 5.7 - 6.4 % Diabetic >or= 6.5 % Please note range changes. Performed By: #### L 501.9956 #### [facility] [address] [place], [place] [address], [address] Hemoglobin A1c percentageOrd ered By: Shala Mohamud on 04-11-2025 HbA1c (Bld) [Mass fraction] 5.7 % <5.7 [facility] Comment on above: Normal < 5.7 % Predi abetic 5.7 - 6.4 % Diabetic >or= 6.5 % Please note range changes. Hemoglobin measurementOrdere d By: Shala Mohamud on 04-11-2025 Hemoglobin (Bld) [Mass/Vol] 16.2 g/dL 13.0-16.5 [facility] Immature granulocytes/100 WB C Auto (Bld)Ordered By: Shala Mohamud on 04-11-2025 Immature granulocytes/100 WBC (Bld) 0.400 % 0.0-0.9 [facility] Comment on above: IG% - Immature Granu locytes (promyelocytes, myelocytes and metamyelocytes) > 1% indicates that a LEFT SHIFT is Present. LDL calc ser/plasOrdered By: Shala Mohamud on 04-11-2025 Cholesterol in LDL [Mass/Vol] 150 mg/dL [facility] Comment on above: Zjhodkirhf=911-923 m g/dL & Higher Qrky=547 mg/dL or greaterFriedwald Equation for LDL-C Laboratory - Chemistry and C hemistry - challengeOrdered By: Shala Mohamud on 04-11-2025 AST [Catalytic activity/Vol] 21 U/L <38 [facility] Lipid Profileon 04-11-2025 CHOL:HDL 5.97 Normal [facility] Comment on above: Performed By: #### L 100.0100, L500.4050, L500.4100, L501.9520, L501.9910, L506.1001 #### [facility] [address] [facility] [place], [address] Cholesterol [Mass/Vol] 222 mg/dL High <=200 [facility] Comment on above: Result Comment: Chol esterol level, Desirable <200 mg/dL Borderline high cholesterol 200-239 mg/dL High cholesterol >=240 mg/dL Recommendations of the NCEP Adult Treatment Panel for the following risk-cutoff thresholds for the [place] population. Performed By: #### L 100.0100, L500.4050, L500.4100, L501.9520, L501.9910, L506.1001 #### [facility] [address] [place], [address] Cholesterol in HDL [Mass/Vol] 37 mg/dL Low [facility] Comment on above: Result Comment: Anyi onal Cholesterol Education Program (NCEP) guidelines: <40 mg/dL: Low HDL-cholesterol (major risk factor for CHD) >= 60 mg/dL: High HDL-cholesterol (negative risk factor for CHD) HDL-cholesterol is affected by a number of factors, e.g. smoking, exercise, hormones, sex and age. Performed By: #### L 100.0100, L500.4050, L500.4100, L501.9520, L501.9910, L506.1001 #### [facility] [address] [place], [address] Cholesterol in LDL [Mass/Vol] 150 mg/dL Normal [facility] Comment on above: Result Comment: Bord ijxcph=017-606 mg/dL Higher Zpuq=992 mg/dL or greater Friedwald Equation for LDL-C Performed By: #### L 100.0100, L500.4050, L500.4100, L501.9520, L501.9910, L506.1001 #### [facility] [address] [place], [address] Cholesterol in VLDL [Mass/Vol] 35 mg/dL Normal 5-40 [facility] Comment on above: Performed By: #### L 100.0100, L500.4050, L500.4100, L501.9520, L501.9910, L506.1001 #### [facility] [address] [place], [address] Triglyceride [Mass/Vol] 174 mg/dL Normal [facility] Comment on above: Result Comment: The drugs N-Acetylcysteine and Metamizole may falsely depress this assay. Normal range: <150 mg/dL Borderline High: 150-199 mg/dL High: 200-499 mg/dL Very High: >500 mg/dL Performed By: #### L 100.0100, L500.4050, L500.4100, L501.9520, L501.9910, L506.1001 #### [facility] [address] [place], [address] MCV (mean corpuscular volume ) determinationOrdered By: Shala Mohamud on 04-11-2025 MCV (RBC) [Entitic vol] 82.3 fL 80-94 [facility] MR/BMS.IMBon 04-11-2025 MR/BMS.IMB [facility] [address] [facility] [place] [place] [address] OFFICE VISIT Date of Service: 04/11/25 MR#: [id number] Acct: [id number] Name: AHMET NIXON Rep #: [id number] : 1965 Provider: Dr. Shala lafleur MD Age/Sex: 60/M Location: [facility] Status: Signed Intake Vital Signs 04/11/24 08:06 04/11/25 07:58 04/11/25 08:55 Height 5 ft 8 in 5 ft 8 in Weight: 234 lb 8 oz 239 lb 6 oz BMI 35.6 36.3 BP 155/109 H 161/100 H 152/96 H Blood Pressure Location Lt brachial Rt brachial Lt brachial Position Sitting Sitting Sitting Respiration 16 16 Pulse 62 62 Pulse Source Monitor Monitor Temp 98.6 F 98.0 F Temp Source Temporal Temporal Pulse Oximetry (%) 92 95 Oxygen Delivery Method room air room air Intake Visit Reasons: Annual/Physical Chief Complaint: no acute concerns Manager Front Office Required: No Accompanied by: Self Is patient in pain?: No Allergies No Known Allergies Allergy (Verified 04/11/25 07:55) Medications ???Medication ???Instructions ???Recorded ???Confirmed ???Type NK 03/31/20 04/11/25 History [facility] History (Updated 04/11/25 @ 08:[address] Shala Mohamud MD) Dyspnea on exertion Surgical History History of left knee surgery Family History Mother No problems noted. Social History Smoking Status: Never smoker alcohol intake: never substance use type: does not use HPI HPI Chief Complaint: no acute concerns Details: AHMET NIXON, is a 60 M who presents to the office today for annual wellness checkup. 60-year-old gentleman who I typically see on a annual basis for wellness visits. Overall seems to be doing pretty well and really does not have any new specific concerns or issues on his part. He is up-to-date on colonoscopy, although it is due next year. Dr. Palacios performed colonoscopy in 2016, no polyps, 10-year recommended follow-up. He has no change in his bowel habits at this point. He did have mildly elevated blood pressures in the past that we had documented but he is not monitoring at home. He does note that he has been having some sense of mild dyspnea on exertion. On the one hand he is not really doing any regular regimented physical fitness program but at times when he is trying to exert, such as a short run he will get winded a lot easier than it had in the past he states. However it usually does not lead him to have to stop but rather adjust the pace. He does not get chest pain he states. Again has had some elevated blood pressures. His initial reading here was 161/100, on repeat 152/96. He has access to blood pressure cuff at home. He has never had stress testing. Would note that he does have a low HDL chronically. We discussed that in the past, in the context of diet pattern. While he does eat generally speaking pretty good foods, he does self-admittedly overeating carbohydrates at times, and lesser quality foods at times. Review of systems per chart. Physical exam. Vital signs on chart. EOMI. PERRLA. Sclera are clear. TMs are unremarkable with normal light reflexes. Canals are unremarkable. Posterior pharynx is unremarkable. Good dentition. No cervical or supraclavicular lymph nodes enlarged or tender. No clear thyromegaly. No thyroid nodules readily palpable. Lungs are without wheeze, rhonchi, rales. No E/A changes are heard. Heart is regular. Not tachycardic. No clear murmur, rub, or gallop is identified. The abdomen is soft. Bowel sounds are present. Nontender nondistended abdomen. No clear palpable masses in the abdomen. No significant leg edema. Cranial nerve examination 2 through 12 are grossly unremarkable nonlateralizing. No obvious rashes. No obvious significant skin lesions are identified. ROS Const Constitutional: No body ache, chills, excessive sweating, fatigue, fever(s), frequent falls, headache(s), snoring, weakness or change in appetite Eyes Eyes: No blurry vision, change in vision, eye pain or Light sensitivity ENT ENT: No abnormal hearing, ear or mastoid pain, tinnitus, nasal congestion, headache(s), neck pain or sore throat Resp Respiratory: No cough, shortness of breath, snoring or wheezing Cardio Cardiology: No chest pain at rest, chest pain with exertion, excessive sweating, dyspnea on exertion, lightheadedness, orthopnea or palpitations Gastro GI: No abdominal pain, change in bowel habits, constipation, cramping, diarrhea, nausea/dyspepsia or vomiting Genitourinary Male: No burning urination, painful urination, urinary incontinence or urinary frequency Musc Musculoskeletal: No abnormal gait, joint pain, back pain, limited range of motion, muscle weakness, n (more content not included)... Normal [facility] Mean corpuscular hemoglobin (MCH) determinationOrdered By: Shala Mohamud on 04-11-2025 MCH (RBC) [Entitic mass] 28.1 pg 27.0-32.0 [facility] Mean corpuscular hemoglobin concentration (MCHC) determinationOrdered By: Shala Mohamud on 04-11-2025 MCHC (RBC) [Mass/Vol] 34.1 g/dL 32-36 [facility] Mean platelet volume determi nationOrdered By: Shala Mohamud on 04-11-2025 Platelet mean volume (Bld) [Entitic vol] 9.3 fL 6.2-12.0 [facility] Monocyte percentageOrdered B y: Shala Mohamud on 04-11-2025 Monocytes/100 WBC (Bld) 7.7 % 0-10 [facility] Neutrophil percentageOrdered By: Sahla Mohamud on 04-11-2025 Neutrophils/100 WBC (Bld) 58.2 % 47-70 [facility] Nucleated red blood cell per centageOrdered By: Shala Mohamud on 04-11-2025 Nucleated RBC/100 WBC (Bld) [Ratio] 0 % 0-5 [facility] PSA,Total - Annual Screenon 04-11-2025 PSA,TOT SCREEN 0.98 ng/mL Normal 0.02-4.00 [facility] Comment on above: Result Comment: This test was performed using the [employer] tPSA method. Measured values of a patient??sample can vary depending on the testing procedure used. PSA values determined on patient samples by different testing procedures cannot be used interchangeably. If there is a change in PSA assays while monitoring therapy, sequential testing should be performed to confirm baseline values. Performed By: #### L 100.0100, L500.4050, L500.4100, L501.9520, L501.9910, L506.1001 #### [facility] [address] [place], [address] Platelet countOrdered By: Jesusita Mohamud on 04-11-2025 Platelets (Bld) [#/Vol] 239 10*3/uL 150-450 [facility] Potassium measurement (mass/ volume)Ordered By: Shala Mohamud on 04-11-2025 Potassium (Unsp spec) [Mass/Vol] 4.0 mmol/L 3.3-5.1 [facility] RBC Auto (Bld) [#/Vol]Ordere d By: Shala Mohamud on 04-11-2025 RBC (Bld) [#/Vol] 5.77 10*6/uL 4.6-6.2 [facility] Screening total cholesterol/ high density lipoprotein (HDL) cholesterol ratioOrdered By: Shala Mohamud on 04-11-2025 Cholesterol.total/Choles terol in HDL [Mass ratio] 5.97 {ratio} [facility] Serum creatinine measurement (mass/volume)Ordered By: Shala Mohamud on 04-11-2025 Creatinine [Mass/Vol] 1.00 mg/dL 0.70-1.20 [facility] Serum globulin measurementOr dered By: Shala Mohamud on 04-11-2025 Globulin (S) [Mass/Vol] 2.9 g/dL 2.2-4.2 [facility] Serum glucose measurement (m ass/volume)Ordered By: Shala Mohamud on 04-11-2025 Glucose [Mass/Vol] 115 mg/dL High 70-99 [facility] Serum or plasma alanine fitzpatrick otransferase (ALT) measurementOrdered By: Shala Mohamud on 04-11-2025 ALT [Catalytic activity/Vol] 25 U/L <47 [facility] Serum or plasma albumin jenelle urement (mass/volume)Ordered By: Shala Mohamud on 04-11-2025 Albumin [Mass/Vol] 4.3 g/dL 3.4-4.8 [facility] Serum or plasma albumin/glob ulin mass ratioOrdered By: Shala Mohamud on 04-11-2025 Albumin/Globulin [Mass ratio] 1.5 {ratio} 0.9-2.4 [facility] Serum or plasma alkaline danie sphatase measurementOrdered By: Shala Mohamud on 04-11-2025 ALP [Catalytic activity/Vol] 57 U/L 40-129 [facility] Serum or plasma calcium jenelle urement (mass/volume)Ordered By: Shala Mohamud on 04-11-2025 Calcium [Mass/Vol] 9.0 mg/dL 7.6-11.0 [facility] Serum or plasma cholesterol in HDL measurement (mass/volume)Ordered By: Shala Mohamud on 04-11-2025 Cholesterol in HDL [Mass/Vol] 37 mg/dL Low >40 [facility] Comment on above: National Cholesterol Education Program (NCEP) guidelines:<40 mg/dL: Low HDL-cholesterol (major risk factor for CHD)>= 60 mg/dL: High HDL-cholesterol (negative risk factor for CHD)HDL-cholesterol is affected by a number of factors, e.g. smoking, exercise, hormones, sex and age. Serum or plasma cholesterol measurement (mass/volume)Ordered By: Shala Mohamud on 04-11-2025 Cholesterol [Mass/Vol] 222 mg/dL High <201 [facility] Comment on above: Cholesterol level, D esirable <200 mg/dLBorderline high cholesterol 200-239 mg/dLHigh cholesterol >=240 mg/dLRecommendations of the NCEP Adult Treatment Panel for the following risk-cutoff thresholds for the [place] population. Serum or plasma urea nitroge n measurement (mass/volume)Ordered By: Shala Mohamud on 04-11-2025 Urea nitrogen [Mass/Vol] 15 mg/dL 4-19 [facility] Sodium levelOrdered By: Ana Mohamud on 04-11-2025 Sodium [Moles/Vol] 141 mmol/L 133-145 [facility] TSH DL <= 0.005 mIU/L QnOrde red By: Shala Mohamud on 04-11-2025 TSH Qn 1.680 uIU/mL 0.300-4.200 [facility] Thyroid Stim Hormone (TSH)on 04-11-2025 TSH 1.680 uIU/mL Normal 0.300-4.200 [facility] Comment on above: Performed By: #### L 100.0100, L500.4050, L500.4100, L501.9520, L501.9910, L506.1001 #### [facility] [address] [place], [address] Total proteinOrdered By: Darlyn Mohamud on 04-11-2025 Protein [Mass/Vol] 7.2 g/dL 5.9-8.4 [facility] Triglycerides measurementOrd ered By: Shala Mohamud on 04-11-2025 Triglyceride [Mass/Vol] 174 mg/dL <199 [facility] Comment on above: The drugs N-Acetylcy steine and Metamizole may falsely depress this assay. Normal range: <150 mg/dLBorderline High: 150-199 mg/dLHigh: 200-499 mg/dLVery High: >500 mg/dL Vitamin D,25 Hydroxyon 04-11 Vitamin D 25-OH 25.7 ng/mL Low 30-100 [facility] Comment on above: Result Comment: Guerda min D Status Deficiency: <20 ng/mL (50nmol/L) Insufficiency: 20-30 ng/mL (50-75 nmol/L) Sufficiency: 30-100 ng/mL (75-250 nmol/L) Toxicity: >100 ng/mL (>250 nmol/L) Performed By: #### L 100.0100, L500.4050, L500.4100, L501.9520, L501.9910, L506.1001 #### [facility] [address] [place], [address] White blood cell (WBC) count Ordered By: Shala Mohamud on 04-11-2025 WBC (Bld) [#/Vol] 5.7 10*3/uL 4.4-11.0 [facility] Absolute lymphocyte countOrd ered By: Shala Mohamud on 04-29-2023 Lymphocytes Auto (Unsp spec) [#/Vol] 1.57 10*3/uL 0.83-4.51 [facility] Basophil percentageOrdered B y: Shala Mohamud on 04-29-2023 Basophils/100 WBC (Bld) 0.5 % 0-1 [facility] Bilirubin [Mass/Vol] 0.60 mg/dL 0.20-1.00 [facility] Comment on above: For patients on eltr ombopag therapy, use of Dimension Mcclusky TBIL is not recommended. Chloride [Moles/Vol] 110 mmol/L 98-107 [facility] Cholesterol [Mass/Vol] 209 mg/dL <200 [facility] Comment on above: <200 mg/dL Desirable 200-240 mg/dL Borderline >240 mg/dL High Risk Eosinophils/100 WBC (Bld) 1.1 % 0-5 [facility] Glucose [Mass/Vol] 114 mg/dL 74-106 [facility] Comment on above: Fasting Glucose resu lt from 100 to 125 mg/dL suggests IMPAIRED HOMEOSTASIS per A.D.A. criteria. Neutrophils (Bld) [#/Vol] 4.0 10*3/uL 2.0-7.7 [facility] Neutrophils/100 WBC (Bld) 63.9 % 47-70 [facility] Potassium [Moles/Vol] 4.1 mmol/L 3.5-5.1 [facility] Protein [Mass/Vol] 7.4 g/dL 6.4-8.2 [facility] Sodium [Moles/Vol] 139 mmol/L 136-145 [facility] Triglyceride [Mass/Vol] 242 mg/dL <199 [facility] Comment on above: The drugs N-Acetylcy steine and Metamizole may falsely depress this assay.Serum Triglycerides Reference Interval Normal <150 mg/dL Borderline high 150 - 199 mg/dL High 200 - 499 mg/dL Very High > or = 500 mg/dL WBC (Bld) [#/Vol] 6.2 10*3/uL 4.4-11.0 [facility] Blood erythrocytes count (nu mber/volume)Ordered By: Shala Mohamud on 04-29-2023 RBC (Bld) [#/Vol] 5.81 10*6/uL 4.6-6.2 [facility] Blood hemoglobin measurement (mass/volume)Ordered By: Shala Mohamud on 04-29-2023 Hemoglobin (Bld) [Mass/Vol] 16.9 g/dL 13.0-16.5 [facility] Blood lymphocytes/100 leukoc ytesOrdered By: Shala Mohamud on 04-29-2023 Lymphocytes/100 WBC (Bld) 25.2 % 19-41 [facility] Blood monocytes/100 leukocyt esOrdered By: Shala Mohamud on 04-29-2023 Monocytes/100 WBC (Bld) 9.0 % 0-10 [facility] Blood platelet mean volumeOr dered By: Shala Mohamud on 04-29-2023 Platelet mean volume (Bld) [Entitic vol] 9.5 fL 6.2-12.0 [facility] Determination of erythrocyte mean corpuscular volume (MCV)Ordered By: Shala Mohamud on 04-29-2023 MCV (RBC) [Entitic vol] 84.2 fL 80-94 [facility] Hematocrit Auto (Bld) [Volum e fraction]Ordered By: Shala Mohamud on 04-29-2023 Hematocrit (Bld) [Volume fraction] 48.9 % 40-54 [facility] - Chemistry and C hemistry - challengeOrdered By: Shala Mohamud on 04-29-2023 ALP [Catalytic activity/Vol] 59 U/L 45-117 [facility] ALT [Catalytic activity/Vol] 31 U/L 16-61 [facility] CO2 [Moles/Vol] 27.0 mmol/L 21.0-32.0 [facility] Globulin (S) [Mass/Vol] 3.6 g/dL 2.2-4.2 [facility] Urea nitrogen/Creatinine [Mass ratio] 16.8 mg/mg 10-20 [facility] - Hematology and Cell countsOrdered By: Shala Mohamud on 04-29-2023 Erythrocyte distribution width (RBC) [Entitic vol] 38.6 fL 35.1-43.9 [facility] Erythrocyte distribution width (RBC) [Ratio] 12.5 % 11.6-14.6 [facility] Immature granulocytes/100 WBC (Bld) 0.300 % 0.0-0.9 [facility] Comment on above: IG% - Immature Granu locytes (promyelocytes, myelocytes and metamyelocytes) > 1% indicates that a LEFT SHIFT is Present. MCH (RBC) [Entitic mass] 29.1 pg 27.0-32.0 [facility] Nucleated RBC/100 WBC (Bld) [Ratio] 0 % 0-5 [facility] MCHC Auto (RBC) [Mass/Vol]Or dered By: Shala Mohamud on 04-29-2023 MCHC (RBC) [Mass/Vol] 34.6 g/dL 32-36 [facility] No Panel InformationOrdered By: Shala Mohamud on 04-29-2023 Estimated GFR (MDRD) Amer 97 mL/min >60 [facility] Comment on above: GFR Calc Estimated GFR (MDRD) Non-Af Amer 80 mL/min >60 [facility] Comment on above: Non- GFR Calc Prostate Specific Antigen Screen 0.91 ng/mL 0.00-4.00 [facility] Comment on above: This test was perfor med using the TPSA assay method for the[facility] chemistry system. Values obtained with differentassay methods cannot be used interchangably.When changing PSA assays in the course of monitoring apatient, additional sequential testing should be carriedout to confirm baseline values. Vitamin D 25-Hydroxy 28.8 ng/mL [facility] Comment on above: Vitamin D 25(OH) Sta tus Range Deficiency <20 ng/mL (50nmol/L) Insufficiency 20 - 30 ng/mL (50 - 75 nmol/L) Sufficiency 30 - 100 ng/mL (75 - 250 nmol/L) Toxicity >100 ng/mL (>250 nmol/L) Platelets bldOrdered By: Darlyn Mohamud on 04-29-2023 Platelets (Bld) [#/Vol] 254 10*3/uL 150-450 [facility] Serum or plasma albumin jenelle urement (mass/volume)Ordered By: Shala Mohamud on 04-29-2023 Albumin [Mass/Vol] 3.8 g/dL 3.2-5.0 [facility] Serum or plasma albumin/glob ulin mass ratioOrdered By: Shala Mohamud on 04-29-2023 Albumin/Globulin [Mass ratio] 1.1 {ratio} 0.9-2.4 [facility] Serum or plasma calcium jenelle urement (mass/volume)Ordered By: Shala Mohamud on 04-29-2023 Calcium [Mass/Vol] 8.5 mg/dL 8.5-10.1 [facility] Serum or plasma cholesterol in HDL measurement (mass/volume)Ordered By: Shala Mohamud on 04-29-2023 Cholesterol in HDL [Mass/Vol] 29 mg/dL >40 [facility] Comment on above: The drugs N-Acetylcy steine and Metamizole may falsely depress this assay. Reference Range HDL <40 mg/dL Low HDL Cholesterol HDL >or= 60 mg/dL High HDL Cholesterol Serum or plasma cholesterol in VLDL measurement (mass/volume)Ordered By: Shala Mohamud on 04-29-2023 Cholesterol in VLDL [Mass/Vol] 48 mg/dL 5-40 [facility] Serum or plasma creatinine m easurement (mass/volume)Ordered By: Shala Mohamud on 04-29-2023 Creatinine [Mass/Vol] 1.01 mg/dL 0.70-1.30 [facility] Comment on above: The validity of the calculated GFR & GFRAA in patients over 70 years has not been determined. Clinical correlation is essential. Serum or plasma low density lipoprotein (LDL) cholesterol measurement (mass/volume)Ordered By: Shala Mohamud on 04-29-2023 Cholesterol in LDL [Mass/Vol] 132 mg/dL 0-130 [facility] Serum or plasma urea nitroge n measurement (mass/volume)Ordered By: Shala Mohamud on 08-18-2023 Urea nitrogen [Mass/Vol] 17 mg/dL 7-18 [facility] Thin prep Papanicolaou smear with manual screeningOrdered By: Shala Mohamud on 04-29-2023 Thin prep Papanicolaou smear with manual screening 18 U/L 15-37 [facility] Thin prep Papanicolaou smear with manual screening 2 5-15 [facility] Vital Signs Date Time Vital Sign Value Performing Clinician Faci lity 04-20-2025 09:31-0400 Body temperature 97.7 [degF] Alka Praisler-Wood PELT INSPECTOR.WAYBILL CLERK Work Phone: [facility] 04-20-2025 09:31-0400 Body weight 104 kg Alka Praisler-Wood PELT INSPECTOR.WAYBILL CLERK Work Phone: [facility] 04-20-2025 09:31-0400 Diastolic blood pressure 80 mm[Hg] Alka Praisler-Wood PELT INSPECTOR.WAYBILL CLERK Work Phone: [facility] 04-20-2025 09:31-0400 Heart rate 59 /min Alka Praisler-Wood PELT INSPECTOR.WAYBILL CLERK Work Phone: [facility] 04-20-2025 09:31-0400 Respiratory rate 16 /min Alka Praisler-Wood PELT INSPECTOR.WAYBILL CLERK Work Phone: [facility] 04-20-2025 09:31-0400 SaO2% (BldA) [Mass fraction] 98 % Alka Praisler-Wood PELT INSPECTOR.WAYBILL CLERK Work Phone: [facility] 04-20-2025 09:31-0400 Systolic blood pressure 140 mm[Hg] Alka Praisler-Wood PELT INSPECTOR.WAYBILL CLERK Work Phone: [facility] 04-11-2025 08:55-0400 Diastolic blood pressure 96 mm[Hg] Dr. Shala Mohamud MD Work Phone: [facility] 04-11-2025 08:55-0400 Systolic blood pressure 152 mm[Hg] Dr. Shala Mohamud MD Work Phone: [facility] 04-11-2025 07:58-0400 Body height 172.[address] Shala Mohamud MD Work Phone: [facility] 04-11-2025 07:58-0400 Body mass index (BMI) [Ratio] 36.3 kg/m2 Dr. Shala Mohamud MD Work Phone: [facility] 04-11-2025 07:58-0400 Body temperature 98 [degF] Dr. Shala Mohamud MD Work Phone: [facility] 04-11-2025 07:58-0400 Body weight 108.[address] Shala Mohamud MD Work Phone: [facility] 04-11-2025 07:58-0400 Heart rate 62 /min Dr. Shala Mohamud MD Work Phone: [facility] 04-11-2025 07:58-0400 Respiratory rate 16 /min Dr. Shala Mohamud MD Work Phone: [facility] 04-11-2025 07:58-0400 SaO2% (BldA) [Mass fraction] 95 % Dr. Shala Mohamud MD Work Phone: [facility] 04-07-2023 08:30-0400 Body height 172.[address] Shala Mohamud Work Phone: [facility] 04-07-2023 08:30-0400 Body mass index (BMI) [Ratio] 35 kg/m2 Dr. Shala Mohamud Work Phone: [facility] 04-07-2023 08:30-0400 Body temperature 98.2 [degF] Dr. Shala Mohamud Work Phone: [facility] 04-07-2023 08:30-0400 Body weight 104.[address] Shala Mohamud Work Phone: [facility] 04-07-2023 08:30-0400 Diastolic blood pressure 88 mm[Hg] Dr. Shala Mohamud Work Phone: [facility] 04-07-2023 08:30-0400 Heart rate 64 /min Dr. Shala Mohamud Work Phone: [facility] 04-07-2023 08:30-0400 Respiratory rate 16 /min Dr. Shala Mohamud Work Phone: [facility] 04-07-2023 08:30-0400 SaO2% (BldA) [Mass fraction] 96 % Dr. Shala Mohamud Work Phone: [facility] 04-07-2023 08:30-0400 Systolic blood pressure 160 mm[Hg] Dr. Shala Mohamud Work Phone: [facility] Encounters Encounter Date Encounter Type Care Provider Facility Start: 05-07-2025 ambulatory Shala Mohamud Facility :[facility] Start: 04-20-2025 End: 04-20-2025 Subsequent hospital visit by physician Xr [facility] Work Phone: Radiology Comment on above: Inflammatory heel pa in, right [M79.671] Start: 04-20-2025 End: 04-20-2025 Patient encounter procedure Alka Frost APRN.WAYBILL CLERK Work Phone: [facility] Comment on above: Inflammatory heel pa in, right (Primary Dx); Calcaneal spur, right foot Start: 04-20-2025 End: 04-20-2025 ambulatory ALKA FROST Facility:[facility] Start: 04-19-2025 Encounter for genera l adult medical examination without abnormal findings Shala Mohamud [facility] Start: 04-11-2025 End: 04-11-[address] Shala Mohamud MD Work Phone: -Laboratory Start: 04-11-2025 End: 04-11-[address] Shala Mohamud MD -Laboratory Work Phone: Start: 04-11-2025 End: 04-11-[address] Shala Mohamud MD [facility] Work Phone: Start: 04-11-2025 End: 04-11-[address] Shala Mohamud MD Work Phone: [facility] [place] Start: 04-11-2025 End: 04-11-2025 ambulatory Shala Mohamud Facility:[facility] Start: 04-29-2023 End: 04-29-[address] Shala Mohamud Work Phone: [facility] Work Phone: Start: 04-29-2023 End: 04-29-[address] Shala Mohamud Work Phone: [facility]-Laboratory Work Phone: Start: 04-07-2023 End: 04-07-2023 Encounter for general adult medical examination without abnormal findings Dr. Shala Mohamud Work Phone: [facility] Start: 04-07-2023 End: 04-07-[address] Shala Mohamud Work Phone: [facility] [place] Work Phone: Start: 03-17-[address] Nina Mohamud Work Phone: [facility] Start: 07-13-2017 End: 09-11-2017 Ambulatory [facility] Facility:B Procedures Date Procedure Procedure Detail Performing Clinician Start: 04-20-2025 Radex ankle complete minimum 3 views Alka Frost PELT INSPECTOR.WAYBILL CLERK Work Phone: Start: 04-11-[address] Shala Mohamud MD Work Phone: Comment on above: Test Ordered: [id number] Oxidized LDLOxidized LDL 1072 [H ] ng/mL Reference Range: 10-170Results verified by repeat testingPerformed at: [address] [id number] Director: Shannon Miner MD, Phone: [phone] at: [place] [address] [place], [place] [id number] Director: Glenn Adair PhD, Phone: [phone] Start: 04-11-2025 Prostate specific an tigen measurement Dr. Shala Mohamud MD Work Phone: Comment on above: This test was perfor med using the [employer] tPSA method. Measured values of a patient sample can vary depending on the testing procedure used. PSA values determined on patient samples by different testing procedures cannot be used interchangeably. If there is a change in PSA assays while monitoring therapy, sequential testing should be performed to confirm baseline values. Start: 04-11-2025 Vitamin D, 25-hydrox y measurement Dr. Shala Mohamud MD Work Phone: Comment on above: Vitamin D StatusDefi ciency: <20 ng/mL (50nmol/L)Insufficiency: 20-30 ng/mL (50-75 nmol/L)Sufficiency: 30-100 ng/mL (75-250 nmol/L)Toxicity: >100 ng/mL (>250 nmol/L) Start: 04-27-2016 Colonoscopy Alka Li APRN.WAYBILL CLERK Work Phone: Start: 05-31-2014 Lipid 1996 panel - S cricket or Plasma Alka Frost APRN.WAYBILL CLERK Work Phone: Plan of Treatment Date Care Activity Detail Author Start: 2039 RSV Vaccine (1 - 1-dose 75+ series) RSV Vaccine (1 - 1-dose 75+ series) [facility] Start: 03-31-2030 Urine microalbumin profile DTaP,Tdap,Td Vaccine (2 - Td or Tdap) [facility] Start: 04-27-2026 Screening for malignant neoplasm of colon [facility] Start: 05-13-2025 Influenza vaccination [facility] Start: 04-11-2025 Evaluation of diagnostic study results [facility] Start: 05-27-2020 Prostate specific antigen measurement Prostate Cancer Screening Discussion [facility] Start: 05-31-2019 Lipid panel Lipid Screening [facility] Start: 05-31-2017 Diabetes Screening Diabetes Screening [facility] Start: 2014 Pneumococcal Vaccine: 50+ (1 of 1 - PCV) Pneumococcal Vaccine: 50+ (1 of 1 - PCV) [facility] Start: 2014 Shingrix Vaccine (1 of 2) Shingrix Vaccine (1 of 2) [facility] Start: 2009 Screening for malignant neoplasm of colon [facility] Start: 1982 Anxiety Screening Anxiety Screening [facility] Start: 1982 Depression Screening Depression Screening [facility] Start: 1982 Hepatitis C screening Hepatitis C Screening [facility] Start: 1982 HIV screening HIV Screening [facility] Radionuclide imaging of perfusion of myocardium under exercise stress [facility] Immunizations Immunization Date Immunization Notes Care Provider Fa cility 03-31-2020 tetanus toxoid, redu gilberto diphtheria toxoid, and acellular pertussis vaccine, adsorbed Dr. Shala Mohamud Work Phone: [facility] Payers Date Payer Category Payer Self-pay [id number] 2024 Private Health Insurance MMO [employer] PPO Member Subscriber Plan / Payer (Effective 2024-Present) Name: Ahmet Nixon Relation to Subscriber: Self Name: Ahmet Nixon Payer ID: Not on file Type: PPO Address: [place] [id number] [id number] 2017 Unknown [id number] Unknown [id number] Unknown [id number] Unknown [id number] Unknown [id number] Social History Date Type Detail Facility Start: [facility]07[facility] Start: 1965 Sex Assigned At Male [facility] Start: 04-07-2023 [facility] (finding[facility] Start: 04-20-2025 Alcoholic beverage intake Current drinker of alcohol (finding) [facility] Start: 04-20-2025 History of Social function [facility] Start: 04-20-2025 Tobacco use panel [facility] Start: 1965 Sex assigned at Not on file [facility] Start: 08-13-2012 Sex Male [facility] Functional Status Date Assessment Result Facility 06-07-2014 Are you deaf, or do you have serious difficulty hearing No 06/07/2014 7:58 AM [facility] Ma No [facility] 06-07-2014 Are you blind, or do you have serious difficulty seeing, even when wearing glasses No 06/07/2014 7:58 AM [facility] Ma No [facility] 06-07-2014 Do you have serious difficulty walking or climbing stairs No 06/07/2014 7:58 AM [facility] Ma No [facility] 06-07-2014 Do you have difficul ty dressing or bathing No 06/07/2014 7:58 AM [facility] Ma No [facility] 06-07-2014 Because of a physica l, mental, or emotional condition, do you have difficulty doing errands alone such as visiting a physician's office or shopping No 06/07/2014 7:58 AM [facility] Ma No [facility] Mental Status Date Assessment Result Facility 06-07-2014 Because of a physica l, mental, or emotional condition, do you have serious difficulty concentrating, remembering, or making decisions No 06/07/2014 7:58 AM [facility] No [facility] Clinical Notes 04-20-2025 Patient InstructionsMariann-Alka Mcrae APRN.MIKAELA - 04/20/2025 12:36 PM RAQUELTDasha Joe Tech - 04/20/2025 9:50 AM EDT Note Date & Type Note Facility 04-20-2025 Instructions Alka Frost APRN.WAYBILL CLERK - 04/20/2025 12:37 PM EDT 1. Inflammatory heel pain, right (M79.671) 2. Calcaneal spur, right foot (M77.31) - X-ray shows a posterior plantar spur; suspect inflammation of the Achilles tendon at the heel insertion. - Start prednisone taper. - Apply ice and elevate foot. - Continue to use crutches as needed. - Educated patient on expected improvement within 24-48 hours of starting prednisone. - X-ray shows a heel spur (posterior plantar spur). You have inflammation where your Achilles tendon attaches to your heel. 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 - Apply ice to your heel and elevate your foot when resting to help reduce swelling. - Continue using crutches as needed to keep weight off your foot. - Expect to notice improvement within 24 to 48 hours after starting the medication. documented in this encounter [facility] 04-20-2025 Note HNO ID: [id number] Author: ALKA FROST APRN.MIKAELA Service: ? Author Type: Nurse Practitioner Type: Progress Notes Filed: 04/20/2025 12:37 Note Text: [facility] Nixon is a 60 year old male. Patient presents with: Pain: Thinks he over extended right achilles tendon x 2 days HPI Right Foot Pain: - Onset after excessive walking during a company pic[employer]OSS. - Typically walks 4,000-6,000 steps/day; walked 28,000 steps on the day of onset. - Initial pain began with tenderness in the ankle progressing to difficulty walking by the end of the day. - Pain initially localized to the plantar aspect of the foot, then shifted to the lateral aspect, and is now primarily in the posterior heel. - Able to place foot flat on the floor but experiences pressure when doing so. - Pain severity initially rated as 8/10. - Swelling has decreased significantly. - Denies pain on the dorsum of the foot. Review of Systems Musculoskeletal: (+) heel pain, (+) difficulty walking, (-) dorsal foot pain, (-) ankle pain Objective BP 140/80 Pulse (!) 59 Temp 36.5 ?C (97.7 ?F) (Tympanic) Resp 16 Wt 104 kg (229 lb 4.5 oz) SpO2 98% PAST MEDICAL HISTORY[1] PAST SURGICAL HISTORY Procedure Laterality Date - COLONOSCOPY FLX DX W/COLLJ SPEC WHEN PFRMD 04/27/16 normal - 10 year follow up - TONSILLECTOMY PRIMARY/SECONDARY Tonsillectomy ALLERGIES Patient has no known allergies. MEDICATIONS - predniSONE (DELTASONE) 10 mg tablet Take 4 tablets by mouth once daily for 3 days, THEN 3 tablets once daily for 3 days, THEN 1 tablet once daily for 3 days. FAMILY HISTORY[2] SOCIAL HISTORY[3] Physical Exam { 1. Inflammatory heel pain, right (M79.671) 2. Calcaneal spur, right foot (M77.31) - X-ray shows a posterior plantar spur; suspect inflammation of the Achilles tendon at the heel insertion. - Start prednisone taper. - Apply ice and elevate foot. - Continue to use crutches as needed. - Educated patient on expected improvement within 24-48 hours of starting prednisone. - Follow-up with your PCP in 3-5 days if symptoms have not improved or sooner if symptoms worsen - Discussed red flags and need for immediate medical evaluation if any occur. - Discussed supportive care treatment with fluids, rest and analgesia. - Discussed expected course of illness Alka Frost APRN.WAYBILL CLERK and Recording using [employer] software for draft documentation of the visit was discussed with the patient/authorized patient services representative; all questions welcomed and answered. Patient/authorized patient services representative agreed to proceed History and Record Review Clinical information obtained from an independent historian. History obtained from or confirmed by: spouse. Management I performed an independent interpretation of the following:imaging Imaging: My interpretation is see chart Disposition The patient was discharged. Procedures [1] Past Medical History: No date: NEGATIVE MEDICAL HISTORY [2] Review of patient's family history indicates: Problem: Hypertension Relation: Father Age of Onset: (Not Specified) Problem: Arthritis Relation: Father Age of Onset: (Not Specified) Comment: Gout Problem: None Relation: Father Age of Onset: (Not Specified) Comment: glaucoma Problem: None Relation: Mother Age of Onset: (Not Specified) Comment: Hx pulmonary embolism Problem: Lipids Relation: Brother Age of Onset: (Not Specified) Problem: Prostate Cancer Relation: Father Age of Onset: (Not Specified) [3] Social History Tobacco Use - Smoking status: Never Substance Use Topics - Alcohol use: Yes Comment: occassionally - Drug use: No [facility] 04-20-2025 History of Presen t illness Narrative [facility] Dillon Ahmet Nixon is a 60 year old male. Patient presents with: Pain: Thinks he over extended right achilles tendon x 2 days HPI Right Foot Pain: - Onset after excessive walking during a company pic[employer]OSS. - Typically walks 4,000-6,000 steps/day; walked 28,000 steps on the day of onset. - Initial pain began with tenderness in the ankle progressing to difficulty walking by the end of the day. - Pain initially localized to the plantar aspect of the foot, then shifted to the lateral aspect, and is now primarily in the posterior heel. - Able to place foot flat on the floor but experiences pressure when doing so. - Pain severity initially rated as 8/10. - Swelling has decreased significantly. - Denies pain on the dorsum of the foot. Review of Systems Musculoskeletal: (+) heel pain, (+) difficulty walking, (-) dorsal foot pain, (-) ankle pain Objective BP 140/80 Pulse (!) 59 Temp 36.5 C (97.7 F) (Tympanic) Resp 16 Wt 104 kg (229 lb 4.5 oz) SpO2 98% PAST MEDICAL HISTORY[1] PAST SURGICAL HISTORY Procedure Laterality Date COLONOSCOPY FLX DX W/COLLJ SPEC WHEN PFRMD 04/27/16 normal - 10 year follow up TONSILLECTOMY PRIMARY/SECONDARY <AGE 11 Tonsillectomy ALLERGIES Patient has no known allergies. MEDICATIONS predniSONE (DELTASONE) 10 mg tablet Take 4 tablets by mouth once daily for 3 days, THEN 3 tablets once daily for 3 days, THEN 1 tablet once daily for 3 days. FAMILY HISTORY[2] SOCIAL HISTORY[3] Physical Exam { 1. Inflammatory heel pain, right (M79.671) 2. Calcaneal spur, right foot (M77.31) - X-ray shows a posterior plantar spur; suspect inflammation of the Achilles tendon at the heel insertion. - Start prednisone taper. - Apply ice and elevate foot. - Continue to use crutches as needed. - Educated patient on expected improvement within 24-48 hours of starting prednisone. - Follow-up with your PCP in 3-5 days if symptoms have not improved or sooner if symptoms worsen - Discussed red flags and need for immediate medical evaluation if any occur. - Discussed supportive care treatment with fluids, rest and analgesia. - Discussed expected course of illness Alka Frost APRN.CNP and Recording using [employer] software for draft documentation of the visit was discussed with the patient/authorized patient services representative; all questions welcomed and answered. Patient/authorized patient services representative agreed to proceed History and Record Review Clinical information obtained from an independent historian. History obtained from or confirmed by: spouse. Management I performed an independent interpretation of the following:imaging Imaging: My interpretation is see chart Disposition The patient was discharged. Procedures [1] Past Medical History: No date: NEGATIVE MEDICAL HISTORY [2] Review of patient's family history indicates: Problem: Hypertension Relation: Father Age of Onset: (Not Specified) Problem: Arthritis Relation: Father Age of Onset: (Not Specified) Comment: Gout Problem: None Relation: Father Age of Onset: (Not Specified) Comment: glaucoma Problem: None Relation: Mother Age of Onset: (Not Specified) Comment: Hx pulmonary embolism Problem: Lipids Relation: Brother Age of Onset: (Not Specified) Problem: Prostate Cancer Relation: Father Age of Onset: (Not Specified) [3] Social History Tobacco Use Smoking status: Never Substance Use Topics Alcohol use: Yes Comment: occassionally Drug use: No documented in this encounter [facility] 04-20-2025 History of Presen t illness Narrative Radiology Service Progress Note PATIENT NAME: Ahmet Nixon DATE OF SERVICE: April 20, 2025 TIME: 10:03 AM PATIENT IDENTITY VERIFICATION COMPLETED USING TWO (2) IDENTIFIERS: Name and Date of confirmed by patient verbally. FALL SCREENING: Has the patient had 2 falls in the last year or 1 fall with injury or currently using an Ambulatory Assistive Device (Walker, Cane, Wheelchair, Crutches, etc.)? Yes, Patient High Risk for Falls What interventions were put in place to prevent falls during this visit? Increased Observations by Caregivers PATIENT GENDER DATA: Assigned male at PATIENT RELEVANT IMPLANT DATA REVIEWED: Yes PATIENT PRESENTS WITH AN IMPLANTABLE OR ATTACHED DIRECTOR INPATIENT HEADACHE PROGRAM: No RADIOLOGY DEPARTMENT: General X-ray: Exam(s) Completed: Lower Extremity X-Ray(s): Ankle, Right PERIPHERAL IV DATA: Not applicable SIGNED BY: Farhad Alicia April 20, 2025 10:03 AM documented in this encounter [facility] 04-20-2025 Note HNO ID: [id number] Author: DASHA JOE Tech Service: ? Author Type: Experienced Truck Driver Type: Progress Notes Filed: 04/20/2025 10:04 Note Text: Radiology Service Progress Note PATIENT NAME: Ahmet Nixon DATE OF SERVICE: April 20, 2025 TIME: 10:03 AM PATIENT IDENTITY VERIFICATION COMPLETED USING TWO (2) IDENTIFIERS: Name and Date of confirmed by patient verbally. FALL SCREENING: Has the patient had 2 falls in the last year or 1 fall with injury or currently using an Ambulatory Assistive Device (Walker, Cane, Wheelchair, Crutches, etc.)? Yes, Patient High Risk for Falls What interventions were put in place to prevent falls during this visit? Increased Observations by Caregivers PATIENT GENDER DATA: Assigned male at PATIENT RELEVANT IMPLANT DATA REVIEWED: Yes PATIENT PRESENTS WITH AN IMPLANTABLE OR ATTACHED DIRECTOR INPATIENT HEADACHE PROGRAM: No RADIOLOGY DEPARTMENT: General X-ray: Exam(s) Completed: Lower Extremity X-Ray(s): Ankle, Right PERIPHERAL IV DATA: Not applicable SIGNED BY: Farhad Alicia April 20, 2025 10:03 AM [facility] Evaluation note Diagnosis Onset Date Encounter for wellness examination in adult acute Low HDL (under 40) acute Obesity (BMI 30.0-34.9) [facility] Work Phone: Evaluation noteNo assessment information available [facility] Work Phone: Evaluation note* Diagnosis Inflammatory heel pain, right- Primary Calcaneal spur, right foot Inflammatory heel pain, right [facility] Diagnosis Inflammatory heel pain, right [facility] (narrative)No reason for referral information availableMarietta [facility] Services Work Phone: Reason for visit Narrative* Diagnostic Procedure Only (Urgent) - Closed Specialty Diagnoses / Procedures Referred By Contac t Referred To Contact XR IMAGING Diagnoses Inflammatory heel pain, right Procedures XR ANKLE GENERAL 3V AP/LAT/OBL RIGHT RADEX ANKLE COMPLETE MINIMUM 3 VIEWS Alka Frost, JOSEPH.WAYBILL CLERK [address] [facility] [place] [address] Phone: tel: fax: [place] [phone] Referral ID Status Reason Start Date Expiration Date V isits Requested Visits Authorized [id number] Closed Auto-Generate d Referral 04/20/2025 05/20/2026 1 1 [facility] Summary Purpose Family History No Family History Records FoundNo Family History Records FoundNo Family History Records Found Advance Directives No Advanced Directives Records Found Advance Directive Response Recorded Date/ Time Living Will No March 22, 2023 1:15pm Power of Podiatry Assistant No March 22 1:15pm Advance Directive Response Recorded Date/ Time Living Will No March 22, 2023 1:15pm Do you have a Healthcare Power of Podiatry Assistant? No March 22, 2023 1:15pm Chief Complaint and Reason for Visit Chief Complaint Annual E ORDERS Reason for Visit Encounter for winstonia ss examination in adult Low HDL (under 40) Obesity (BMI 30.0-34.9) Chief Complaint Admit Date Annual/Physical April 11, 2025 7:56 am Chief Complaint Admit Date Annual/Physical April 11, 2025 7:56 am INT LABS April 11, 2025 9:09 am Additional Source Comments (unrecognized sect ion and content) No Status Records FoundNo Status Records FoundNo Status Records Found INFORMATION SOURCE (unrecogn ized section and content) DATE CREATED AUTHOR 03/06/2018 [facility] ([place]) DATE CREATED AUTHOR AUTHOR'S ORGANIZ ATION 04/22/2025 [facility] DATE CREATED AUTHOR AUTHOR'S ORGANIZ ATION 05/03/2025 [facility] Care Teams (unrecognized sec tion and content) Team Status: Active Member Role Status Dates No Primary Care Physician Family Provider Active Dr. Shala Mohamud MD Primary Care Provider Active Team Status: Inactive Member Role Status Dates Dr. Shala Mohamud MD Primary Care Provider, Attendi ng Provider Active Team Status: Inactive Member Role Status Dates Dr. Shala Mohamud MD Primary Care Pro vider, Attending Provider, Referring Provider Active Team Status: Active Member Role/Relationship Status Dates No Primary Care Physician Family Provider Active Dr. Shala Mohamud MD Primary Care Provider Active Team Status: Inactive Member Role/Relationship Status Dates Dr. Shala Mohamud MD Primary Care Provider Active Start: April 11, 2025 End: April 11, 2025 Dr. Shala Mohamud MD Attending Provider Active Start: April 11, 2025 End: April 11, 2025 Team Status: Active Member Role/Relationship Status Dates Dr. Shala Mohamud MD Primary Care Provider Active Team Status: Inactive Member Role/Relationship Status Dates Dr. Shala Mohamud MD Primary Care Provider Active Start: April 11, 2025 End: April 11, 2025 Dr. Shala Mohamud MD Attending Provider Active Start: April 11, 2025 End: April 11, 2025 Dr. Shala Mohamud MD Referring Provider Active Start: April 11, 2025 End: April 11, 2025 Goals (unrecognized section and content) Goals may be documented in a n alternate sectionGoals may be documented in an alternate sectionGoals may be documented in an alternate section Source Comments (unrecognize d section and content) In the event this informatio n is protected by the Federal Confidentiality of Alcohol and Drug Abuse Patient Records regulations: The Federal rules restrict any use of the information to criminally investigate or prosecute any alcohol or drug abuse patient.[facility] the event this information is protected by the Federal Confidentiality of Alcohol and Drug Abuse Patient Records regulations: The Federal rules restrict any use of the information to criminally investigate or prosecute any alcohol or drug abuse patient.[facility] Reason for Visit (unrecogniz ed section and content) Reason Comments Pain Thinks he over exten ded right achilles tendon x 2 days FOR RECORDS PERTAINING TO PATIENTS WHO ARE OR HAVE BEEN ENROLLED IN A CHEMICAL DEPENDENCY/SUBSTANCEABUSE PROGRAM, SOME INFORMATION MAY BE OMITTED. This clinical summary was aggregated from multiple sources. Caution should be exercised in using it in the provision of clinical care. This summary normalizes information from multiple sources, and as a consequence, information in this document may materially change the coding, format and clinical context of patient data. In addition, data may be omitted in some cases. CLINICAL DECISIONS SHOULD BE BASED ON THE PRIMARY CLINICAL RECORDS. [employer] [facility]. provides no warranty or guarantee of the accuracy or completeness of information in this document.
--- NOTE | 2025-05-07 14:18 | STRESSREP_ITS ---
Stress Test Report Exercise myocardial perfusion stress test. 60-year-old male with a history of dyspnea on exertion. Stress protocol: Resting EKG demonstrates sinus bradycardia rhythm with a rate of 57 bpm resting blood pressure is 142/94 mmHg. The patient exercised according to the regular Jean protocol for a total duration of 9-1/2 minutes attaining a maximum heart rate of 140 bpm which was 88% of maximum predicted heart rate; the maximum workload was 11.7 metabolic equivalents. At rest there were no ST or T wave changes noted to suggest ischemia and at peak exercise upsloping ST changes only were noted which did not meet the criteria for ischemia. No clinical angina was noted the test was terminated due to the target heart rate being achieved/f atigue. The peak blood pressure was 202/102 mmHg. Rate-pressure product was 25,100. Myocardial perfusion protocol. 14 point mCi of technetium 99m sestamibi was injected at rest. The patient exercised according to regular Jean protocol for total duration of 9-1/2 minutes and at peak exercise 44 point mCi of technetium 99m sestamibi was injected stress images were obtained stress and rest images were reconstructed in comparing the short axis vertical long and horizontal long axis. Gated images were also obtained. Perfusion SPECT analysis: Review of the stress images demonstrate normal uptake of tracer noted in all areas of the myocardium. The resting images similarly demonstrate normal uptake of tracer noted in all areas of the myocardium. No areas of reversibility are noted to suggest ischemia no previous infarct was noted. Gated SPECT analysis: The gated ejection fraction is 61% Conclusion: Normal exercise myocardial perfusion stress test at a high workload. Hypertensive response to exercise
== END | disposition home or self-care (01) ==
PROVIDERS: PCP Internal Medicine; Referring Provider Internal Medicine; Visit Provider Internal Medicine
DX: R06.09 Other forms of dyspnea (principal); E78.6 Lipoprotein deficiency; E66.9 Obesity, unspecified
CPT/HCPCS: 78452; 93017; A9500; A4216